=== PATIENT | male | born 1975 | race African-American/Black ===

== ENCOUNTER 2017-01-02 18:22 | Emergency (ER) | payer OTHER ==
[~2017-01-02] VITALS: Ht 195.6 cm; Wt 104.3 kg
--- NOTE | ~2017-01-02 | EKG ---
[address] [place] [address] ELECTROCARDIOGRAM REPORT Name: CUCA RICHARDSON [facility]Meet[facility] [id number] Admission: 01/02/17 Attend Phys: Discharge: 01/02/17 Date of : 79 Report #: [id number] THIS REPORT FOR: //name// [facility] ED Test Date: 2017-01-02 Test Time: 19:06:14 Pat Name: CUCA RICHARDSON Department: Room: Gender: [employer]ator: LAURA : 1975 Requested By: Lauren Banks Order Number: [id number] MD: Duane Ling Measurements Intervals Dennis Rate: 67 P: 49 SD: 131 QRS: 72 QRSD: 105 T: 49 QT: 440 QTc: 465 Interpretive Statements Sinus rhythm Atrial premature complex Left ventricular hypertrophy No previous ECG available for comparison Electronically Signed On 01-03-2017 20:20:04 CDT by Duane Ling [email or web address] <ELECTRONICALLY SIGNED> By: Duane Ling MD 01/03/172019 1906 05 Duane Ling MD /RUSLAN
[2017-01-02] MEDS ORDERED: ACCUNEB SO1.25 MG/1 INH (19:06)
[2017-01-02 19:33] LABS: ABSOLUTE NEUTROPHILS 5.8 thou/uL (1.4-8.2); BASOPHILS 0.4 % (0.0-2.0); EOSINOPHILS 2.3 % (0.0-3.0); HEMOGLOBIN 15.1 gm/dL (14.0-18.0); LYMPHOCYTES 30.6 % (24.0-44.0); MCHC 33.6 g/dL (28.0-37.0); MCV 83.2 fL (80.0-100.0); MONOCYTES 10.8 % (1.0-8.0); PLATELET COUNT 267 thou/uL (150-400); POLYS 55.9 % (36.0-66.0); RDW 14.1 % (10.5-14.5); URINE BILIRUBIN NEGATIVE (Negative); URINE BLOOD NEGATIVE (Negative); URINE COLOR YELLOW; URINE GLUCOSE-RANDOM* NEGATIVE (Negative); URINE KETONES 1+ (Negative); URINE NITRITE NEGATIVE (Negative); URINE PROTEIN (DIPSTICK) NEGATIVE (Negative); URINE UROBILINOGEN 0.2 E.U./dl (0.2-1.0); WBC 10.3 thou/uL (4.0-11.0)
[2017-01-02 19:35] LABS: MANUAL DIFF NO
[2017-01-02 19:43] LABS: AMP/METHAMP POSITIVE (Negative); BARBITURATES Negative (Negative); BENZODIAZEPINES POSITIVE (Negative); COCAINE Negative (Negative); METHADONE Negative (Negative); OPIATES Negative (Negative); PCP Negative (Negative); THC POSITIVE (Negative)
[2017-01-02 19:47] LABS: ANION GAP 17 mmol/L (7-16); BUN 11 mg/dL (7-18); CHLORIDE 99 mmol/L (98-107); CO2 20 mmol/L (21-32); CREATININE 1.3 mg/dL (0.7-1.3); GLUCOSE 93 mg/dL (74-106); POTASSIUM 3.1 mmol/L (3.5-5.1); SODIUM 136 mmol/L (136-145)
[2017-01-02 19:54] LABS: ALBUMIN 4.1 g/dL (3.4-5.0); ALKALINE PHOSPHATASE 70 U/L (46-116); SGOT 19 U/L (15-37); SGPT 23 U/L (30-65); TOTAL BILIRUBIN 1.5 mg/dL (<0.1-1.0); TOTAL PROTEIN 7.7 g/dL (6.4-8.2); TROPONIN-I < 0.04 ng/mL (<0.04-0.07)
[2017-01-02 21:05] VITALS: BP 150/93
== END 2017-01-02 21:06 | disposition home or self-care (01) ==
LOC: ER 18:22
PROVIDERS: Nurse Practitioner Family
DX: F41.0 Panic disorder [episodic paroxysmal anxiety] (principal); F12.10 Cannabis abuse, uncomplicated; F15.10 Other stimulant abuse, uncomplicated; J45.909 Unspecified asthma, uncomplicated